=== PATIENT | male | born 1995 ===

== ENCOUNTER 2020-09-26 16:31 | Emergency (ER) | payer SELFPAY ==
[2020-09-26] MEDS ORDERED: Ketorolac Tromethamine 30 MG/ML VIAL ONE (18:09)
[2020-09-26] MEDS ORDERED: Boostrix 0.5 ML (Tdap) VIAL ONE (18:10)
== END 2020-09-26 18:50 | disposition home or self-care (01) ==
LOC: ERS 16:31
DX: S16.1XXA Strain of muscle, fascia and tendon at neck level, initial encounter (principal); Z23 Encounter for immunization; F17.290 Nicotine dependence, other tobacco product, uncomplicated; V49.9XXA Car occupant (driver) (passenger) injured in unspecified traffic accident, initial encounter
CPT/HCPCS: 90471; 90715; 96372; J1885